=== PATIENT | female | born 1950 | race Two or more races ===

== ENCOUNTER → 2024-06-09 | Outpatient (CLI) | payer MEDICARE, SELFPAY ==
--- NOTE | 2024-06-09 13:16 | XR_ITS ---
Examination: Knee, right , 4 views Technique: Knee AP, lateral, oblique, axial 4 views Date and time of exam: June 09, 2024 1410 hours INDICATIONS: Left knee pain beginning one year ago. FINDINGS: Mild tricompartment osteoarthritis No fracture or dislocation No ossified joint body IMPRESSION: Mild tricompartment osteoarthritis
== END | disposition home or self-care (01) ==
PROVIDERS: PCP Internal Medicine; Referring Provider Orthopaedic Surgery Adult Reconstructive Orthopaedic Surgery; Visit Provider Orthopaedic Surgery Adult Reconstructive Orthopaedic Surgery
DX: M17.12 Unilateral primary osteoarthritis, left knee (principal)
CPT/HCPCS: 73564

== ENCOUNTER 2024-06-19 08:58 | Outpatient (AMB) | payer MEDICARE, SELFPAY ==
--- NOTE | 2024-06-19 09:43 | RHCORTHONT_ITS ---
Vital signs 06/19/24 09:44 Height 1.6 m Height Method Stated Weight 82.696 kg Weight Measurement Method Standing Scale BMI 32.3 BP 161/90 H Blood Pressure Source Automatic Cuff Blood Pressure Location Left Upper Arm Position Sitting Respiration 16 Pulse 65 Pulse Source Monitor Temp 97.2 F Temp Source Temporal Artery Scan Pulse Oximetry (%) 95 Oxygen Delivery Method Room Air Med/Allergies Allergies & Medications Allergies MILK CHEESE Adverse Reaction (Mild, Uncoded 06/19/24 09:45) Gastrointestinal Upset Medication Reconciliation alprazolam 0.5 mg tablet 0.5 mg PO QDAY 08/08/19 [History Confirmed 06/19/24] metoprolol succinate 50 mg tablet,extended release 24 hr 100 mg PO HS 08/08/19 [History Confirmed 06/19/24] omeprazole 40 mg capsule,delayed release 40 mg PO QDAY 08/08/19 [History Confirmed 06/19/24] bupropion HCl 150 mg tablet,12 hr sustained-release 150 mg PO HS 01/21/21 [History Confirmed 06/19/24] ibuprofen 400 mg tablet 400 mg PO Q8H PRN Pain 06/02/21 [History Confirmed 06/19/24] fluticasone furoate 100 mcg-vilanterol 25 mcg/dose inhalation powder (Breo Ellipta) 1 inh inhalation Q24H 01/18/24 [History Confirmed 06/19/24] pregabalin 50 mg capsule 50 mg PO QDAY 01/18/24 [History Confirmed 06/19/24] sertraline 50 mg tablet 50 mg PO QDAY 01/18/24 [History Confirmed 06/19/24] meloxicam 7.5 mg tablet 7.5 mg PO QDAY #45 tabs 04/15/24 [Rx Confirmed 06/19/24] Exam Exam Patient is in no acute distress and is cooperative with the examination today. Breathing is nonlabored. Patient has a normal mood and affect. Bilateral extremities were evaluated and demonstrates sensation intact to light touch. Palpable pedal pulses are present. No significant edema is present. Bilateral hips were examined. The patient has no pain with log roll of the hips. Internal rotation to 30 degrees and external rotation to 30 degrees is painless. Negative FADIR. Left knee was examined today. The left knee is in reasonable alignment. Range of motion from 0-120 degrees. Knee is stable to varus and valgus as well as AP translation with <5mm. Patient has a negative McMurrays. There is no pain with patellofemoral compression and no crepitus noted. The knee is nontender to palpation. The right knee was also examined. The right knee is in varus alignment. Range of motion from [0-115] degrees. Knee is stable to varus and valgus as well as AP translation with <5mm. Patient has a negative McMurrays. There is no pain with patellofemoral compression and [no] crepitus noted. The knee is [tender] to palpation [medially]. Weightbearing x-rays demonstrate mild medial joint space narrowing and moderate patellofemoral arthritis of both knees Assessment and Plan Problem List (1) Arthritis of right knee: Status: Acute Plan: Kim is a pleasant 73-year-old female with Bilateral knee arthritis of mild severity. She reports significant pain is affecting her quality life and happiness. The pain actually seems out of proportion to the x-rays. I discussed with her I would first start with a different type of injection as it is too early to do a cortisone injection. We can try hyaluronic acid injection. I discussed with her that she is welcome to get a second opinion as well because she has significantly more pain and the x-rays show. It is thus hard for me to recommend a surgery given the fact that I was seeing mild arthritis. I discussed with her that I would recommend conservative treatment for now given her x-ray findings The knee was prepped with a alcohol skin prep. A full spray was used followed by an 18-gauge needle. We injected the entire syringe of Synvisc 1 Advanced Care Planning Discussion Advance care planning discussed with:: patient Office Procedures GNS Level of Care Nursing/Assessment Patient Status: Established Patient Nursing Assessment/Reassesment: Medication Reconciliation, Update PMH in EMR and Vital Signs Coordination of Care: Complex Care and Chronic Disease 1-5 and Education Complex Pt/Fam Special Needs: Language special needs Established Patient Charge Established Patient Point Assignment: 75 Established Patient Point Charge: EP Level 2 (40-75) Surgical Proc/IM SQ injection Major Surgical Procedure: Yes (Right knee gel injection ) MA Intake Visit Data Collection New Patient or Established: Established Patient (seen at [facility] within 3 years) Reason for Visit:: knee pain x 2 weeks Seen by Clinical Staff ONLY (RN/MA): No Verbal consent obtained for Telemed visit?: No Software Specialist Required: Yes Hx Now: No Questionairres Past Medical History Past Medical History Have you ever been diagnosed with any of the following: Neurological Problems Seizures: No Cardiology Problems Hypercholesterolemia: Yes Congestive Heart Failure: No Hypertension: Yes Respiratory Problems Chronic Obstructive Pulmonary Disease (COPD): No Smoking: No Smoking Exposure: No Stomache/Intestinal Problems Hepatitis: No Gastroesophageal Reflux Disease: Yes Genital/Urinary Problems Renal Disease: No Reproductive Problems Previous Pregnancies: Yes (x4) Musculoskeletal Problems Arthritis: Yes Fibromyalgia: Yes Head,Eye,Nose,Throat Problems Cataracts: Yes (Bilateral) Deafness: Yes ([place] LEFT EAR) Endocrine Problems Diabetes Mellitus Type 1: No Diabetes Mellitus Type 2: No Blood Problems Anemia: No Psychologic Problems Depression: Yes Anxiety: Yes Other Problems Falls: No Blood Transfusions: No Blood Transfusion Reaction: No Anesthesia Reactions: No Chemotherapy: No MRSA: No Chicken Pox: Yes Measles: Yes Cancer: No Cervical Cancer: Yes Ovarian Cancer: No Surgical History Hysterectomy: Yes (OOPHORECTOMY) Subjective Visit Visit for: follow up visit and knee Immunization / Flu Flu Vaccine in the Last 12 Months: Yes Flu Vaccine Exclusion Criteria: Already Received History of Present Illness Chief complaint: knee pain x 2 weeks Date of injury / onset of symptoms: 2 weeks Patient is a 73-year-old female with a longstanding history of bilateral knee pain worse on the right. She had recent injections 7 weeks ago and it worked up until 1 week ago. I discussed with her the little early for another injection. We got repeat x-rays and are weightbearing and Only mild arthritis can be visu alized. Pain Pain level (0-10): 8 Pain duration: constant Pain location: inside (medial), outside (lateral), anterior and posterior Pain quality: sharp Pain timing: night Associated signs & symptoms: stiffness Ambulatory data Ambulatory device: cane Treatments Number of previous injections: 2 Improvement with NSAIDS: n/a Review of Systems Review of Systems: All systems negative unless otherwise noted in HPI.
[2024-06-19 09:44] VITALS: BP 161/90; PULSE 65; RESP 16; TEMP 36.2; O2SAT 95; BMI 32.3
== END 2024-06-19 10:23 | disposition home or self-care (01) ==
LOC: HODSRG 08:58
PROVIDERS: PCP Internal Medicine; Referring Provider Internal Medicine; Supervising Provider Orthopaedic Surgery Adult Reconstructive Orthopaedic Surgery; Visit Provider Orthopaedic Surgery Adult Reconstructive Orthopaedic Surgery
DX: M17.11 Unilateral primary osteoarthritis, right knee (principal); I10 Essential (primary) hypertension; E78.00 Pure hypercholesterolemia, unspecified; K21.9 Gastro-esophageal reflux disease without esophagitis
CPT/HCPCS: 20610; 99212; G0463; J7325

== ENCOUNTER → 2024-07-23 | Outpatient (CLI) | payer MEDICARE, SELFPAY ==
--- NOTE | 2024-07-23 09:15 | XR_ITS ---
Examination: Screening digital mammography, bilateral Computer aided detection 3-D breast Tomosynthesis, bilateral Date and time of exam: July 23, 2024 0851 hours Compared to mammograms dating to January 06, 2016 Indication: Screening Technique: Nonmagnified MLO, CC views of the breasts to been obtained, reconstructed from 3-D Tomosynthesis images. R2 computer aided detection program utilized for evaluation of suspicious masses and/or abnormal calcifications. 3-D Tomosynthesis images obtained. Findings: Scattered areas of fibroglandular density Stable focal asymmetry outer left breast dating to January 06, 2016 Benign calcifications No interval suspicious masses Impression: BI-RADS category II: Benign Findings. Recommend 1 year follow-up mammogram.
== END | disposition home or self-care (01) ==
LOC: CDIM 08:41
PROVIDERS: Referring Provider Internal Medicine; Visit Provider Internal Medicine
DX: Z12.31 Encounter for screening mammogram for malignant neoplasm of breast (principal); R92.323 Mammographic fibroglandular density, bilateral breasts; R92.1 Mammographic calcification found on diagnostic imaging of breast
CPT/HCPCS: 77063; 77067

== ENCOUNTER 2024-09-02 13:09 | Outpatient (AMB) | payer MEDICARE, SELFPAY ==
[2024-09-02 13:31] VITALS: BP 143/81; PULSE 70; RESP 18; TEMP 36.2; O2SAT 97; BMI 32.5
--- NOTE | 2024-09-02 13:31 | PD.ORTHCLVIS ---
Vital signs 09/02/24 13:31 Height 1.6 m Height Method Stated Weight 83.263 kg Weight Measurement Method Standing Scale BMI 32.5 BP 143/81 H Blood Pressure Source Automatic Cuff Blood Pressure Location Left Upper Arm Position Sitting Respiration 18 Pulse 70 Pulse Source Monitor Temp 97.2 F Temp Source Temporal Artery Scan Pulse Oximetry (%) 97 Oxygen Delivery Method Room Air Med/Allergies Allergies & Medications Allergies MILK CHEESE Adverse Reaction (Mild, Uncoded 09/02/24 13:38) Gastrointestinal Upset Medication Reconciliation alprazolam 0.5 mg tablet 0.5 mg PO QDAY 08/08/19 [History Confirmed 09/02/24] Held on 01/18/24. Instructions: Resume on 01/19/24. metoprolol succinate 50 mg tablet,extended release 24 hr 100 mg PO HS 08/08/19 [History Confirmed 09/02/24] omeprazole 40 mg capsule,delayed release 40 mg PO QDAY 08/08/19 [History Confirmed 09/02/24] bupropion HCl 150 mg tablet,12 hr sustained-release 150 mg PO HS 01/21/21 [History Confirmed 09/02/24] ibuprofen 400 mg tablet 400 mg PO Q8H PRN Pain 06/02/21 [History Confirmed 09/02/24] fluticasone furoate 100 mcg-vilanterol 25 mcg/dose inhalation powder (Breo Ellipta) 1 inh inhalation Q24H 01/18/24 [History Confirmed 09/02/24] pregabalin 50 mg capsule 50 mg PO QDAY 01/18/24 [History Confirmed 09/02/24] sertraline 50 mg tablet 50 mg PO QDAY 01/18/24 [History Confirmed 09/02/24] meloxicam 7.5 mg tablet 7.5 mg PO QDAY #45 tabs 04/15/24 [Rx Confirmed 09/02/24] celecoxib 200 mg capsule 200 mg PO BID #90 caps 09/02/24 [Rx] Exam Exam Patient is in no acute distress and is cooperative with the examination today. Breathing is nonlabored. Patient has a normal mood and affect. Bilateral extremities were evaluated and demonstrates sensation intact to light touch. Palpable pedal pulses are present. No significant edema is present. Bilateral hips were examined. The patient has no pain with log roll of the hips. Internal rotation to 30 degrees and external rotation to 30 degrees is painless. Negative FADIR. Left knee was examined today. The left knee is in reasonable alignment. Range of motion from 0-120 degrees. Knee is stable to varus and valgus as well as AP translation with <5mm. Patient has a negative McMurrays. There is no pain with patellofemoral compression and no crepitus noted. The knee is nontender to palpation. The right knee was also examined. The right knee is in varus alignment. Range of motion from [0-115] degrees. Knee is stable to varus and valgus as well as AP translation with <5mm. Patient has a negative McMurrays. There is no pain with patellofemoral compression and [no] crepitus noted. The knee is [tender] to palpation [medially]. Weightbearing x-rays demonstrate mild medial joint space narrowing and moderate patellofemoral arthritis of both knees Assessment and Plan Problem List (1) Arthritis of right knee: Status: Acute Plan: Kim is a pleasant 73-year-old female with Bilateral knee arthritis of mild severity. She reports significant pain is affecting her quality life and happiness. The pain actually seems out of proportion to the x-rays. I discussed with her I would first start with a different type of injection as it is too early to do a cortisone injection. We can try hyaluronic acid injection. I discussed with her that she is welcome to get a second opinion as well because she has significantly more pain and the x-rays show. It is thus hard for me to recommend a surgery given the fact that I was seeing mild arthritis. I discussed with her that I would recommend conservative treatment for now given her x-ray findings Recommend knee cortisone injection as patient would like to proceed with conservative treatment at this time. The risks and benefits of the procedure were reviewed with the patient and patient gave verbal consent to continue with the procedure. Procedure: performed by Dr. Frias Using sterile technique the Right knee was thoroughly prepped with alcohol, and approximately 1 cc of Kenalog 40 mg/mL and 4 cc of 1% lidocaine was injected without resistance into the medial tibial femoral joint space. The patient tolerated the procedure. Advanced Care Planning Discussion Advance care planning discussed with:: patient Office Procedures GNS Level of Care Nursing/Assessment Patient Status: Established Patient Nursing Assessment/Reassesment: Medication Reconciliation, Update PMH in EMR and Vital Signs Coordination of Care: Complex Care and Chronic Disease 1-5, Education Complex Pt/Fam, Consent,records obtained, informed consent, Results/Orders obtained and Staff clarify orders Special Needs: Language special needs Established Patient Charge Established Patient Point Assignment: 95 Established Patient Point Charge: EP Level 3 (80-115) Surgical Proc/IM SQ injection Major Surgical Procedure: Yes (KNEE INJECTION) Medication Given Medication Given Medication Given: Yes Documented Dose Given: 4 Route: Infiitration Medication Given Medication Given Medication Given: Yes Documented Dose Given: 1 Route: Infiitration Office Meds Xylocaine 10 mg/mL (1 %) injection solution Performing Provider: Nelson Frias MD Performing Location: [facility] Administered by: Nelson Frias MD on 09/02/24 14:32 Dose Route Admin Location Dispensed Lot Number Expiration Date [facility] [employer] 20 mL Infiltration 20 mL [id number] [employer] triamcinolone acetonide 40 mg/mL suspension for injection Performing Provider: Nelson Frias MD Performing Location: [facility] Administered by: Nelson Frias MD on 09/02/24 14:32 Dose Route Admin Location Dispensed Lot Number Expiration Date [facility] [employer] 40 mg intra-articular KNEE 1 mL [id number] 10/30/25 [id number] [employer] MA Intake Visit Data Collection New Patient or Established: Established Patient (seen at [facility] within 3 years) Reason for Visit:: REQ BILATERAL KNEE INJECTION Seen by Clinical Staff ONLY (RN/MA): No Verbal consent obtained for Telemed visit?: No Form Block Maker Required: Yes PCP or OBGYN visit in last 3 months: Yes Hx Now: No Do You Feel Safe at Home: Yes Authorities Contacted: N/A Questionairres Past Medical History Past Medical History Have you ever been diagnosed with any of the following: Neurological Problems Seizures: No Cardiology Problems Hypercholesterolemia: Yes Congestive Heart Failure: No Hypertension: Yes Respiratory Problems Chronic Obstructive Pulmonary Disease (COPD): No Smoking: No Smoking Exposure: No Stomache/Intestinal Problems Hepatitis: No Gastroesophageal Reflux Disease: Yes Genital/Urinary Problems Renal Disease: No Reproductive Problems Previous Pregnancies: Yes (x4) Musculoskeletal Problems Arthritis: Yes Fibromyalgia: Yes Head,Eye,Nose,Throat Problems Cataracts: Yes (Bilateral) Deafness: Yes ([place] LEFT EAR) Endocrine Problems Diabetes Mellitus Type 1: No Diabetes Mellitus Type 2: No Blood Problems Anemia: No Psychologic Problems Depression: Yes Anxiety: Yes Other Problems Falls: No Blood Transfusions: No Blood Transfusion Reaction: No Anesthesia Reactions: No Chemotherapy: No MRSA: No Chicken Pox: Yes Measles: Yes Cancer: No Cervical Cancer: Yes Ovarian Cancer: No Surgical History Hysterectomy: Yes (OOPHORECTOMY) Subjective Visit Visit for: follow up visit, knee and injections Immunization / Flu Flu Vaccine in the Last 12 Months: No Flu Vaccine Exclusion Criteria: No Exclusion Criteria and Already Received History of Present Illness Chief complaint: knee pain x 2 weeks Date of injury / onset of symptoms: 2 weeks Patient is a 73-year-old female with a longstanding history of bilateral knee pain worse on the right. She has had prior cortisone injections as well as hyaluronic acid injections. She would like to repeat cortisone injection today. We will switch her anti-inflammatory to Celebrex Pain Pain level (0-10): 9 Pain duration: COMES AND GOES Pain location: inside (medial), outside (lateral), anterior and posterior Pain quality: sharp, dull and aching Pain timing: night and increases with activity Associated signs & symptoms: stiffness Ambulatory data Ambulatory device: cane and none Treatments Number of previous injections: 2 Improvement with previous injections: No Improvement with PT: No Improvement with NSAIDS: no Review of Systems Review of Systems: All systems negative unless otherwise noted in HPI.
== END 2024-09-02 13:51 | disposition home or self-care (01) ==
LOC: HODSRG 13:09
PROVIDERS: Supervising Provider Orthopaedic Surgery Adult Reconstructive Orthopaedic Surgery; Visit Provider Orthopaedic Surgery Adult Reconstructive Orthopaedic Surgery
DX: M25.561 Pain in right knee (principal); M25.562 Pain in left knee; M17.0 Bilateral primary osteoarthritis of knee
CPT/HCPCS: 20610; 99213; J3301; J3490; G0463

== ENCOUNTER → 2024-10-09 | Outpatient (CLI) | payer MEDICARE, SELFPAY ==
[2024-10-09 08:56] LABS: Albumin, Serum 4.2 gm/dL (3.4-4.8); Anion Gap 8 (7-16); BUN/Creatinine Ratio 18 Ratio (12-20); Blood Urea Nitrogen 14 mg/dL (9-23); Calcium 9.2 mg/dL (8.3-10.6); Calcium (Corrected) 9.2 mg/dL (8.5-10.1); Carbon Dioxide 29.2 mMol/L (20.0-31.0); Chloride 107 mMol/L (98-107); Creatinine (Component) 0.8 mg/dL (0.6-1.3); Glucose 111 mg/dL (74-106); Osmolality,Calculated 288 (275-295); Phosphorous 2.6 mg/dL (2.4-5.1); Potassium 4.6 mMol/L (3.4-5.1); Sodium 144 mMol/L (136-145); eGFR > 60 See Note
== END | disposition home or self-care (01) ==
PROVIDERS: PCP Internal Medicine; Referring Provider Internal Medicine; Visit Provider Internal Medicine
DX: I10 Essential (primary) hypertension (principal)
CPT/HCPCS: 36415; 80069

== ENCOUNTER → 2024-10-21 | Outpatient (CLI) | payer MEDICARE, SELFPAY ==
--- NOTE | 2024-10-21 17:00 | XR_ITS ---
Examination: CT chest, without intravenous contrast. Sagittal and coronal 2-D reconstructions. Exam date and time: October 21, 2024 1646 hrs. Comparison March 18, 2024 Indications: Coughing one year, CT chest March 18, 2024 4 mm pulmonary nodule lingular segment left upper lobe 3 mm pulmonary nodule left lower lobe CTDI:vol (mGy) 11.6 DLP: (mGycm) 442 Technique: Multiple 3.0 mm axial sections of the chest to been obtained. Bone and lung density settings are obtained. Sagittal and coronal 2-D reconstructions have been obtained. Low dose protocols were performed. One or more of the following dose reduction techniques were used; automated exposure control, adjustment of the mA and/or KV according to patient size, use of iterative reconstruction technique. Findings: No thoracic aortic aneurysm dilatation Pulmonary artery segments are not enlarged. No paratracheal tracheobronchial or bronchopulmonary adenopathy Stable 3 mm pulmonary nodule left lower lobe New 2 mm pulmonary nodule in the medial left lower lobe image 140 Fatty infiltration throughout the liver Absent gallbladder No pancreatic mass No hydronephrosis Impression: New 2 mm pulmonary nodule in the medial left lower lobe, with this study as baseline recommend continued 6 month follow-up CT chest without contrast
== END | disposition home or self-care (01) ==
LOC: CCTX 16:16
PROVIDERS: Referring Provider Internal Medicine; Visit Provider Internal Medicine
DX: R91.1 Solitary pulmonary nodule (principal)
CPT/HCPCS: 71250

== ENCOUNTER → 2025-03-04 | Outpatient (CLI) | payer MEDICARE, SELFPAY ==
[2025-03-04 08:48] LABS: Albumin, Serum 4.4 gm/dL (3.4-4.8); Anion Gap 10 (7-16); BUN/Creatinine Ratio 14 Ratio (12-20); Blood Urea Nitrogen 11 mg/dL (9-23); Calcium 9.7 mg/dL (8.3-10.6); Calcium (Corrected) 9.7 mg/dL (8.5-10.1); Carbon Dioxide 29.9 mMol/L (20.0-31.0); Chloride 105 mMol/L (98-107); Creatinine (Component) 0.8 mg/dL (0.6-1.3); Glucose 103 mg/dL (74-106); Osmolality,Calculated 288 (275-295); Phosphorous 3.1 mg/dL (2.4-5.1); Potassium 4.4 mMol/L (3.4-5.1); Sodium 145 mMol/L (136-145); eGFR > 60 See Note
== END | disposition home or self-care (01) ==
LOC: COPL 07:25
PROVIDERS: PCP Internal Medicine; Referring Provider Internal Medicine; Visit Provider Internal Medicine
DX: I10 Essential (primary) hypertension (principal)
CPT/HCPCS: 36415; 80069

== ENCOUNTER → 2025-05-26 | Outpatient (CLI) | payer MEDICARE, SELFPAY ==
--- NOTE | 2025-05-26 16:15 | XR_ITS ---
EXAMINATION: Thyroid sonography complete TECHNIQUE: Grayscale sonographic images thyroid lobes with color flow analysis Date and time: May 26, 2025, 1514 hours INDICATIONS: Mid pole left thyroid nodule 21 x 15 mm biopsied on July 24, 2022. FINDINGS: Right thyroid 4.9 cm Upper pole cyst 3 x 3 mm Mid pole nodule 6 x 7 mm with smaller nodule Left thyroid 5.5 cm Mid pole nodule 11 x 10 mm Lower pole vascular nodule 27 x 20 x 25 mm IMPRESSION: Large vascular lower pole left thyroid nodule, recommend ultrasound-guided fine-needle aspiration of this nodule
== END | disposition home or self-care (01) ==
PROVIDERS: PCP Otolaryngology; Referring Provider Otolaryngology; Visit Provider Otolaryngology
DX: E04.1 Nontoxic single thyroid nodule (principal)
CPT/HCPCS: 76536